=== PATIENT | female | born 1990 | race Caucasian/White ===

== ENCOUNTER 2022-07-26 17:30 | Inpatient (IN) | payer OTHER ==
[~2022-07-26] VITALS: Ht 165.1 cm; Wt 60.8 kg
[2022-07-26] MEDS ORDERED: ZOLPIDEM TARTRATE 10 MG TABLET PO PRN (20:30)
[2022-07-26] MEDS ORDERED: HALOPERIDOL 5 MG TABLET PO PRN (20:30)
[2022-07-26] MEDS ORDERED: LORazepam 2 MG TABLET PO PRN (20:30)
[2022-07-26 20:32] LABS: AMPHET/METH SCREEN,URINE NEGATIVE (NEGATIVE); BARBITURATE SCREEN, URINE NEGATIVE (NEGATIVE); BENZODIAZEPINES SCREEN,URINE NEGATIVE (NEGATIVE); CANNABINOID SCREEN,URINE NEGATIVE (NEGATIVE); COCAINE SCREEN,URINE NEGATIVE (NEGATIVE); METHADONE SCREEN, URINE NEGATIVE (NEGATIVE); OPIATE SCREEN,URINE NEGATIVE (NEGATIVE)
[2022-07-26 20:36] LABS: PHENCYCLIDINE SCREEN,URINE NEGATIVE (NEGATIVE)
[2022-07-26 21:13] LABS: COVID AG,FIA SOURCE NASOPHARYNGEAL
[2022-07-26 21:14] LABS: BASOPHILS % (AUTO) 0.6 % (0.0-2.0); EOSINOPHILS % (AUTO) 2.9 % (1.0-6.0); HEMOGLOBIN 13.2 g/dL (12.0-16.0); LYMPHOCYTES # (AUTO) 2.3 K/uL (1.0-4.8); LYMPHOCYTES % (AUTO) 34.3 % (22.0-44.0); MEAN CORPUSCULAR HEMOGLOBIN 29.8 pg (26.0-34.0); MEAN CORPUSCULAR VOLUME 88 fL (80-100); MONOCYTES # (AUTO) 0.4 K/uL (0.1-1.0); MONOCYTES % (AUTO) 6.5 % (2.0-9.0); NEUTROPHILS # (AUTO) 3.7 K/uL (1.8-7.7); NEUTROPHILS % (AUTO) 55.7 % (40.0-70.0); PLATELET COUNT (AUTO) 263 K/uL (150-450); RED BLOOD CELL COUNT(AUTO) 4.44 MIL/uL (4.00-5.20); RED CELL DISTRIBUTION WIDTH 12.9 % (11.5-14.5)
[2022-07-26 21:28] LABS: ANION GAP 5 mmol/L (8-16); CALCIUM, TOTAL 9.1 mg/dL (8.8-10.5); CARBON DIOXIDE 32 mmol/L (22-29); CHLORIDE 103 mmol/L (98-107); CREATININE 0.81 mg/dL (0.60-1.30); GLUCOSE,RANDOM 89 mg/dL (70-110); POTASSIUM 3.9 mmol/L (3.5-5.1); SODIUM SERUM 140 mmol/L (136-145); UREA NITROGEN, BLOOD 8 mg/dL (7-18)
[2022-07-26 21:30] LABS: GLOMERULAR FILTR. RATE CALC > 60 mL/min (>60)
[2022-07-26 21:43] LABS: SALICYLATE < 2.8 mg/dL (2.8-20.0)
[2022-07-26 21:52] LABS: ALANINE AMINOTRANSFERASE 25 U/L (12-78); ALKALINE PHOSPHATASE 93 U/L (46-116); ASPARTATE AMINOTRANSFERASE 17 U/L (15-37); HCG,QUANTITATIVE < 1 mIU/mL (0-6); TOTAL PROTEIN, SERUM 7.1 g/dL (6.4-8.2)
[2022-07-26 22:09] LABS: ACETAMINOPHEN < 2 mcg/mL (10-30)
[2022-07-27 02:07] VITALS: BP 104/67
[2022-07-27] MEDS ORDERED: NICOTINE 14 MG/24 HOUR PATCH TD PRN (06:15)
[2022-07-27] MEDS ORDERED: ONDANSETRON HCL 4 MG TABLET PO PRN (06:15)
[2022-07-27] MEDS ORDERED: PETROLATUM,WHITE 28 GM JELLY TP PRN (06:15)
[2022-07-27] MEDS ORDERED: CloNIDine HCL 0.1 MG TABLET PO PRN (06:15)
[2022-07-27] MEDS ORDERED: IBUPROFEN 400 MG TABLET PO PRN (06:15)
[2022-07-27] MEDS ORDERED: DOCUSATE SODIUM 100 MG CAPSULE PO PRN (06:15)
[2022-07-27] MEDS ORDERED: LOPERAMIDE HCL 2 MG CAPSULE PO PRN (06:15)
[2022-07-27] MEDS ORDERED: GuaiFENesin/D-METHORPHAN [SUGAR-FREE] 200-20MG/10 ML SYRUP UDCUP PO PRN (06:15)
[2022-07-27] MEDS ORDERED: MAGNESIUM HYDROXIDE SUSPENSION 30 ML UDCUP PO PRN (06:15)
[2022-07-27] MEDS ORDERED: ACETAMINOPHEN 325 MG TABLET PO PRN (06:15)
[2022-07-27] MEDS ORDERED: MAG HYDROX/AL HYDROX/SIMETH ES 30 ML SUSPENSION UDCUP PO PRN (06:15)
[2022-07-27] MEDS ORDERED: ALBUTEROL SULFATE HFA 90 MCG/PUFF 8 GM INHALER IH PRN (06:15)
[2022-07-27 08:30] VITALS: BP 121/67
[2022-07-27 16:00] VITALS: BP 106/63
[2022-07-28 08:00] VITALS: BP 116/69
[2022-07-28] MEDS: FLUoxetine HCL 10 MG CAPSULE PO SCH (14:12)
[2022-07-28 16:59] VITALS: BP 118/66
[2022-07-29 08:00] VITALS: BP 110/66
[2022-07-29] MEDS: FLUoxetine HCL 10 MG CAPSULE PO SCH (10:10)
[2022-07-29 16:07] VITALS: BP 103/54
[2022-07-30 08:04] VITALS: BP 101/58
[2022-07-30] MEDS: FLUoxetine HCL 10 MG CAPSULE PO SCH (08:47)
[2022-07-30 16:37] VITALS: BP 108/57
[2022-07-31 08:00] VITALS: BP 98/56
[2022-07-31] MEDS: FLUoxetine HCL 10 MG CAPSULE PO SCH (08:51)
[2022-07-31 16:51] VITALS: BP 105/64
[2022-08-01 07:18] LABS: COVID AG,FIA SOURCE NASAL SWAB
[2022-08-01 08:00] VITALS: BP 124/77
[2022-08-01] MEDS: FLUoxetine HCL 10 MG CAPSULE PO SCH (08:31)
[2022-08-01 16:00] VITALS: BP 103/54
[2022-08-02] MEDS: FLUoxetine HCL 10 MG CAPSULE PO SCH (08:37)
[2022-08-02 09:53] VITALS: BP 123/75
[2022-08-02 17:04] VITALS: BP 105/65
[2022-08-02] MEDS ORDERED: PROZ10 PO (17:42)
== END 2022-08-02 18:10 | disposition home or self-care (01) | DRG 885 ==
LOC: EMS 17:34 → 3EI 21:50
PROVIDERS: ADMIT Psychiatry & Neurology Child & Adolescent Psychiatry; ATTEND Psychiatry & Neurology Child & Adolescent Psychiatry
DX: F33.2 Major depressive disorder, recurrent severe without psychotic features (principal); R45.851 Suicidal ideations; F41.9 Anxiety disorder, unspecified; G47.00 Insomnia, unspecified; K59.00 Constipation, unspecified; Z20.822 Contact with and (suspected) exposure to COVID-19; Z79.899 Other long term (current) drug therapy
CPT/HCPCS: 80053; 84702; 85025; 93005; 99285; G0480; G0481